=== PATIENT | male | born 1995 | race Caucasian/White ===

== ENCOUNTER 2016-12-10 21:54 | Emergency (ER) | payer OTHER ==
[~2016-12-10] VITALS: Ht 167.6 cm; Wt 99.1 kg
[2016-12-10 22:03] VITALS: BP 133/81; PULSE 93; TEMP 36.6; O2SAT 98; Ht 167.6 cm; Wt 99.1 kg
[2016-12-10] MEDS ORDERED: CEPHALEXIN 500MG HOME PACK 1 EA BTL PO ONE (22:30)
[2016-12-10] MEDS ORDERED: SEPTRA DS HOME PACK 1 EA VIAL PO ONE (22:30)
[2016-12-10] MEDS ORDERED: CEPH500C PO (22:32)
[2016-12-10] MEDS ORDERED: SULF800T23 PO (22:32)
--- NOTE | 2016-12-10 22:36 | EMERGENCY ROOM VISIT NOTE ---
History First contact with patient: 22:13 Chief Complaint: OTHER COMPLAINT Stated Complaint: CORTES,FEVER,PAIN,DIZZY History of Present Illness The patient is a 21 year old male who presents to the Emergency Room with complaints of pain in the low back. The patient states that 3 days ago, he was showering and hit his tailbone. He reports that he has had gradually worsening pain in the area since then and the area feels slightly hard to touch. He denies any history of similar symptoms. He reports increased pain with sitting. He rates his discomfort a 9/10. He denies any fevers/chills or drainage from the area. Review of Systems A complete 10 point review of systems was reviewed with the patient with pertinent positives and negatives as per history of present illness. All else were negative. Social History Smoking Status: Current Every Day Smoker Current/Historical Medications Scheduled Cephalexin Monohydrate (Keflex), 500 MG PO QID Sulfa/Trimethoprim (Bactrim Ds 800MG/160MG), 1 TAB PO BID Physical Exam Vital Signs Date Time Temp Pulse Resp B/P (MAP) Pulse Ox O2 Delivery O2 Flow Rate FiO2 12/10/16 22:03 36.6 93 16 133/81 98 Room Air Physical Exam VITALS: Vitals are noted on the nurse's note and reviewed by myself. Vital signs stable. GENERAL: This is a 21-year-old male, in no acute distress, nondiaphoretic, well- developed well-nourished. SKIN: There is tenderness to the right of the gluteal cleft with minimal induration, no erythema, fluctuance or drainage. MUSCULOSKELETAL: No tenderness to palpation of the sacrum/coccyx. NEURO: Patient was alert and oriented to person place and time. Medical Decision & Procedures Medications Administered Medications (Trade) Dose Ordered Sig/Brian Route Start Time Stop Time Status Last Admin Dose Admin Cephalexin Monohydrate (Keflex 500MG Home Pack) 1 homepack NOW ONCE PO 12/10/16 22:30 12/10/16 22:31 DC 12/10/16 22:40 1 HOMEPACK Trimethoprim/ Sulfamethoxazole (Sulfameth/ Trimeth Ds 800/ 160MG Home Pack) 1 homepack UD ONCE PO 12/10/16 22:30 12/10/16 22:31 DC 12/10/16 22:40 1 HOMEPACK Medical Decision Differential diagnosis includes fracture, contusion, pilonidal cyst, pilonidal abscess, among others. The patient was evaluated as above. He has tenderness and mild induration to suggest a pilonidal cyst which is slightly infected. There are no evidence of a drainable abscess at this time. He is afebrile. The patient will be placed on Bactrim and Keflex and was informed that his symptoms may worsen and if this occurs, he will need to return for I&D. Conservative measures were discussed with the patient. He verbalized understanding of my assessment and treatment plan and was discharged home in good condition. Medication Reconcilliation Current Medication List: was personally reviewed by me Blood Pressure Screening Patient's blood pressure: Normal blood pressure Impression Primary Impression: Pilonidal cyst Departure Information Dispostion Home / Self-Care Condition GOOD Prescriptions Sulfa/Trimethoprim (Bactrim Ds 800MG/160MG) Tab 1 TAB PO BID for 7 Days, #14 TAB Prov: Page Kearney PA-C 12/10/16 Cephalexin Monohydrate (Keflex) 500 Mg Cap 500 MG PO QID for 7 Days, #28 CAP Prov: Page Kearney PA-C 12/10/16 Patient Instructions ED Cyst Pilonidal Infec Abx Only, My [facility] Additional Instructions You were prescribed Keflex to be taken 4 times daily for 7 days. This is an antibiotic. All antibiotics have the potential to cause diarrhea. Stop this medication and contact a medical provider if you were to develop any significant adverse side effects including: wheezing, shortness of breath, passing out, vomiting, or a diffuse rash. Always take antibiotics as directed and COMPLETE the ENTIRE course regardless of the improvement of your symptoms. You were prescribed Bactrim to be taken 4 times daily for 7 days. This is an antibiotic. All antibiotics have the potential to cause diarrhea. Stop this medication and contact a medical provider if you were to develop any significant adverse side effects including: wheezing, shortness of breath, passing out, vomiting, or a diffuse rash. Always take antibiotics as directed and COMPLETE the ENTIRE course regardless of the improvement of your symptoms. For pain control, you can use the following [id number] medicines (if >12 yo): - Regular strength (325mg/tab) Tylenol (acetaminophen) 2 tabs every 4-6 hours as needed. Do not exceed 12 tablets in a 24 hour period. Avoid taking more than 4 grams (4000 mg) of Tylenol per day. This includes any other sources of acetaminophen you may take on a regular basis. - Regular strength (200 mg/tab) Advil (ibuprofen) 1-2 tabs every 4-6 hours as needed. Do not exceed a dose of 3200 mg per day. You have the start of an infection. This may worsen despite antibiotic use. If this occurs, you may need to return here for incision and drainage of the wound. You may belt picker a donut at the pharmacy to sit on which will help the pain. Return here for worsening swelling, fevers or any other/concerning symptoms.
== END 2016-12-10 22:44 | disposition home or self-care (01) ==
LOC: C.EDB 21:56 → C.EDA 22:44
DX: L05.91 Pilonidal cyst without abscess (principal); F17.200 Nicotine dependence, unspecified, uncomplicated

== ENCOUNTER 2017-04-25 14:36 | Emergency (ER) | payer OTHER ==
[~2017-04-25] VITALS: Ht 167.6 cm; Wt 98.0 kg
[2017-04-25 14:39] VITALS: BP 144/96; PULSE 77; TEMP 36.6; O2SAT 98; Ht 167.6 cm; Wt 98.0 kg
--- NOTE | 2017-04-25 14:57 | EMERGENCY ROOM VISIT NOTE ---
ED Visit Note First contact with patient: 14:45 CHIEF COMPLAINT: Nose bleeds HISTORY of present illness: This 22-year-old male presents the ER with chief complaint of having nosebleeds the last 3 days. The patient states that it bleeds from his left nostril on the nasal septum. He states that it only bleeds for a few minutes and then it stops. The patient also states that today he feels tired and has a frontal headache which she describes as "pressure". The patient denies any ear pain or sore throat. The patient denies any cough or fever .the patient is not on any blood thinners.. REVIEW OF SYSTEMS: 6 system review was performed and was negative unless stated otherwise in history of present illness. PMH: The patient is healthy; there is no significant medical or surgical history. SOCIAL HISTORY: Patient is a college student. The patient admits to tobacco use but denies any alcohol use. PHYSICAL EXAM: Vital Signs: Were reviewed Reviewed Nurse's notes. GENERAL: 22- year-old male appears in no acute distress. MENTAL Status: Alert and oriented 3. EARS: TMs - no perforation, injection, or bulging. External canals clear, tympanic membranes not inflamed. NOSE: Nasal mucosa with mild erythema and engorgement. No active bleeding noted. No dry blood noted within the nostrils. PHARYNX: No erythema or edema noted. NECK: Supple, no lymphadenopathy noted. LUNGS: Clear to auscultation without wheezes rales or rhonchi. CARDIAC: Regular rate and rhythm without murmur. DIAGNOSIS: Epistasis Viral URI DISCHARGE INSTRUCTIONS: Recommend applying Neosporin with a Q-tip once daily to each nostril. Take [id number] nasal decongestant daily for 5 days. If symptoms persist or worsen, follow-up with [facility]. Patient condition was stable. Please see Emergency Department Medical Record for additional patient information; this may include discharge diagnosis, interpretation of EKG, laboratory, and/or radiologic studies, Emergency Department course, etc. Allergies Coded Allergies: No Known Allergies (Unverified , 12/10/16) Vital Signs Date Time Temp Pulse Resp B/P (MAP) Pulse Ox O2 Delivery O2 Flow Rate FiO2 04/25/17 14:39 36.6 77 18 144/96 98 Departure Information Referrals No Doctor, Assigned (PCP) Patient Instructions [facility]
== END 2017-04-25 15:05 | disposition home or self-care (01) ==
LOC: C.EDB 14:39 → C.EDD 15:05
DX: R04.0 Epistaxis (principal); F17.200 Nicotine dependence, unspecified, uncomplicated